=== PATIENT | male | born 1970 | race American Indian/Alaskan Native ===

== ENCOUNTER 2021-02-19 09:41 | Emergency (ER) | payer SELFPAY ==
[2021-02-19 09:46] VITALS: BP 156/110
[2021-02-19] MEDS ORDERED: IBUPROFEN 600 MG TAB PO ONE (10:01)
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
[2021-02-19] MEDS ORDERED: MORPHINE 2 MG/1 ML INJ ONE (12:58)
== END 2021-02-20 09:10 | disposition home or self-care (01) ==
LOC: ED 09:41
DX: S82.492A Other fracture of shaft of left fibula, initial encounter for closed fracture (principal); F10.20 Alcohol dependence, uncomplicated; X58.XXXA Exposure to other specified factors, initial encounter; Y93.89 Activity, other specified; Y92.89 Other specified places as the place of occurrence of the external cause; Y99.8 Other external cause status
CPT/HCPCS: 29505; 73590; 99283; J2270

== ENCOUNTER 2021-08-22 11:48 | Emergency (ER) | payer SELFPAY ==
[2021-08-22 14:33] VITALS: BP 133/98
[2021-08-22] MEDS ORDERED: IBUPROFEN 800 MG TAB PO ONE (15:11)
--- NOTE | 2021-08-22 15:11 | Emergency Department Report ---
ED Lower Extremity HPI - General Chief Complaint: Extremity Injury, Lower Stated Complaint: LT LEG PAIN/FALL Time Seen by Provider: 08/22/21 14:49 Source: patient Mode of arrival: Ambulatory Limitations: No Limitations - History of Present Illness Initial Comments: Patient is a 50-year-old male who comes to the ER after bumping his left leg at work today on piece of equipment. He is ambulatory. Neurovascularly intact he denies other injury Complaint: other -: Sudden, hour(s) Type of Injury: blunt Place: work Severity: mild Worsens With: nothing Context: direct blow - Related Data Home Medications Medication Instructions Recorded Confirmed Last Taken Benztropine [Cogentin] 0.5 mg PO QHS 12/27/14 12/27/14 12/26/14 Ibuprofen [Motrin] 400 mg PO BID 12/27/14 12/27/14 12/26/14 risperiDONE [RisperDAL] 1 mg PO BID 12/27/14 12/27/14 12/26/14 Previous Rx's Medication Instructions Recorded Last Taken Type HYDROcodone/APAP 7.5-325 [[place] 1 each PO Q6HR PRN #12 tablet 02/19/21 Unknown Rx 7.5/325] Allergies Allergy/AdvReac Type Severity Reaction Status Date / Time No Known Allergies Allergy Verified 12/27/14 09:46 ED Review of Systems ROS: Stated complaint: LT LEG PAIN/FALL Other details as noted in HPI Comment: All other systems reviewed and negative ED Past Medical Hx - Past Medical History Previous Medical History?: No - Surgical History Past Surgical History?: No - Family History Family history: no significant - Social History Smoking Status: Never Smoker Substance Use Type: Alcohol - Medications Home Medications: Home Medications Medication Instructions Recorded Confirmed Last Taken Type Benztropine [Cogentin] 0.5 mg PO QHS 12/27/14 12/27/14 12/26/14 History Ibuprofen [Motrin] 400 mg PO BID 12/27/14 12/27/14 12/26/14 History risperiDONE [RisperDAL] 1 mg PO BID 12/27/14 12/27/14 12/26/14 History HYDROcodone/APAP 7.5-325 [[place] 1 each PO Q6HR PRN #12 tablet 02/19/21 Unknown Rx 7.5/325] ED Physical Exam - General Limitations: No Limitations General appearance: alert, in no apparent distress - Head Head exam: Present: atraumatic, normocephalic - Eye Eye exam: Present: normal appearance - ENT ENT exam: Present: mucous membranes moist - Neck Neck exam: Present: normal inspection - Respiratory Respiratory exam: Present: normal lung sounds bilaterally. Absent: respiratory distress - Cardiovascular Cardiovascular Exam: Present: regular rate, normal rhythm. Absent: systolic murmur, diastolic murmur, rubs, gallop - GI/Abdominal GI/Abdominal exam: Present: soft, normal bowel sounds - Rectal Rectal exam: Present: deferred - Extremities Exam Extremities exam: Present: normal inspection - Back Exam Back exam: Present: normal inspection - Neurological Exam Neurological exam: Present: alert, oriented X3 - Psychiatric Psychiatric exam: Present: normal affect, normal mood - Skin Skin exam: Present: warm, dry, intact, normal color. Absent: rash ED Course Vital Signs 08/22/21 14:28 Temperature 98.1 F Pulse Rate 80 Respiratory 16 Rate Blood Pressure 133/98 [Left] O2 Sat by Pulse 98 Oximetry ED Lower Extremity MDM - Radiology Data Radiology results: report reviewed, image reviewed Negative - Medical Decision Making X-ray normal Vital Signs 08/22/21 14:28 Temperature 98.1 F Pulse Rate 80 Respiratory 16 Rate Blood Pressure 133/98 [Left] O2 Sat by Pulse 98 Oximetry Patient is ambulatory, neurovascularly and peripheral vascularly intact. Medicated with Motrin for pain. Patient be discharged home with discharge plan of care including diet, activity, medications and follow-up. Patient verbalizes understanding of plan of care - Differential Diagnosis Rule out fracture Critical care attestation.: If time is entered above; I have spent that time in minutes in the direct care of this critically ill patient, excluding procedure time. ED Disposition Clinical Impression: Fall Qualifiers: Encounter type: initial encounter Qualified Code(s): W19.XXXA - Unspecified fall, initial encounter Contusion Qualifiers: Encounter type: initial encounter Disposition: HOME / SELF CARE / HOMELESS Is pt being admited?: No Does the pt Need Aspirin: No Condition: Stable Instructions: Contusion Additional Instructions: Rest, ice and elevate leg Motrin or Tylenol for pain Follow-up with PCP if pain persist I have given you referral below Referrals: RUDY FRANKLIN MD [Staff Physician] - 3-5 Days Forms: Work/School Release Form(ED) Time of Disposition: 16:27
--- NOTE | 2021-08-22 15:39 | XRay Report ---
Left leg-4 views INDICATION: left leg injury. COMPARISON: 02/19/2021 IMPRESSION: Healed proximal fibular diaphyseal fracture with near-anatomic alignment. No significant DJD. Soft tissues are unremarkable. Signer Name: David Christie MD Signed: 08/22/2021 3:34 PM Workstation Name: [id number]
== END 2021-08-22 14:50 | disposition home or self-care (01) ==
LOC: ED 11:48
DX: S80.12XA Contusion of left lower leg, initial encounter (principal); W19.XXXA Unspecified fall, initial encounter; Y93.89 Activity, other specified; Y92.89 Other specified places as the place of occurrence of the external cause; Y99.8 Other external cause status
CPT/HCPCS: 99283